=== PATIENT | male | born 1985 | race Caucasian/White ===

== ENCOUNTER 2018-08-30 20:23 | Emergency (ER) | payer MEDICAID ==
[~2018-08-30] VITALS: Ht 180.3 cm; Wt 90.7 kg
[2018-08-30 20:44] VITALS: Ht 180.3 cm; Wt 90.7 kg
[2018-08-30 23:27] VITALS: BP 129/71
== END 2018-08-30 23:27 | disposition home or self-care (01) ==
LOC: ED 20:23
DX: G44.209 Tension-type headache, unspecified, not intractable (principal); S09.8XXA Other specified injuries of head, initial encounter; W20.8XXA Other cause of strike by thrown, projected or falling object, initial encounter; Y93.89 Activity, other specified; Y92.89 Other specified places as the place of occurrence of the external cause; Y99.8 Other external cause status